=== PATIENT | male | born 1945 | race Caucasian/White ===

== ENCOUNTER 2025-05-03 13:11 | Emergency (ER) | payer MEDICARE, BC, SELFPAY ==
--- NOTE | 2025-05-03 13:25 | ED.GENMED ---
History of Present Illness
General
Chief Complaint: Throat Problem
Source: patient
Exam Limitations: none
Time Seen by Provider: 05/03/25 13:18
History of Present Illness
History of Present Illness:
80yoM with a history of ESRD on hemodialysis T//S, coronary artery disease, peripheral artery disease, COPD, insulin-dependent diabetes, hypertension, and hyperlipidemia presenting via EMS for evaluation after choking episode. Patient is a
resident at [facility]. He was eating a turkey club for lunch today. He did not wear his upper dentures and did not fully chew his food. A piece of sandoval got stuck in the back of his throat. Staff performed Heimlich maneuver without
improvement so EMS was activated. During transport, the ambulance hit a bump which dislodged piece of sandoval. Patient is now feeling much better and is requesting to be discharged. His only current symptom is a mild sore throat. He has baseline
dyspnea from his COPD which is no worse than normal. He denies any issues with dysphagia normally.
Phy Exam
General Physical Exam
General Presentation: well appearing and no apparent distress
General Skin: warm and dry
General Habitus: normal
General Mental: alert
ENT Exam
ENT Exam: normocephalic and other (Posterior oropharynx appears normal. Airway patent. Speaking in full sentences without difficulty.)
Pulmonary Exam
Pulmonary Exam: lungs clear, no respiratory distress, no crackles, no rhonchi, no stridor and no wheezing
Neurological Exam
Neurological Exam: alert
Ade Coma Scale
Eye Opening: Spontaneous
Verbal Response: Oriented
Motor Response: Obeys Commands
GCS Total Score: 15
Skin Exam
Skin Exam: normal color and warm/dry
Psychiatric Exam
Psychiatric Exam: normal mood/affect
Course
Vital Signs
Initial and Last Documented VS:
Initial Vital Signs
Temp Pulse Resp BP Pulse Ox
98.2 F 69 16 106/76 100
05/03/25 13:26 08/10/25 13:26 05/03/25 13:26 05/03/25 13:26 05/03/25 13:26
Last Documented Vital Signs
Temp Pulse Resp BP Pulse Ox
98.2 F 69 16 106/76 100
05/03/25 13:26 05/03/25 13:26 05/03/25 13:26 05/03/25 13:26 05/03/25 13:32
MDM/Problems Addressed
Differential Diagnosis Includes:
80yoM here after a choking episode. Piece of sandoval got stuck in back of throat. This dislodged while in the ambulance. Now asymptomatic and requesting to be discharged. VSS and oxygen saturation 100% on room air. Airway is patent and he is speaking
in full sentences. Patient stable for discharge back to his nursing facility.
*Pulse Oximetry
Patient hypoxic: no (100%)
*Critical Care Note
Total Time (30-74mins, 75-104mins- exclusive of procedures): Not Applicable
ED Attending Note
-
Portions of this chart may have been created with voice recognition software.� Occasional wrong word or��sound alike� substitutions may have occurred due to the inherent limitations of voice recognition software.
Discharge Plan
Departure
Patient Disposition: Home (Routine Discharge)
Date of Disposition: 05/03/25
Time of Disposition: 13:28
Patient with high blood pressure during this ER visit?: No
Discharge Problem:
Choking episode
Instructions: Choking
Activity Restrictions/Additional Instructions:
Chew food well before swallowing.
Please follow-up with your family doctor. Return to the ER with any new or worsening symptoms.
Interventions
Interventions:
*Risk Screen - Suicide Last Done: 05/03/25 13:26
*General Assessment Last Done: 05/03/25 13:32
*Neglect/Abuse Screening Last Done: 05/03/25 13:26
*ED- Fall Risk Assessment Last Done: 05/03/25 13:32
*ED COVID-19 Vaccine History Last Done: 05/03/25 13:32
ED-EENT Assessment Last Done: 05/03/25 13:32
ED- Pulmonary Assessment Last Done: 05/03/25 13:32
Discharge Date and Time
Print Language: SYRIAN
[2025-05-03 13:26] VITALS: BP 106/76
== END 2025-05-03 13:35 | disposition home or self-care (01) ==
LOC: EMR 13:11
PROVIDERS: EMERGENCY PHYSICIAN Emergency Medicine; FAMILY PHYSICIAN Hospitalist
DX: R09.89 Other specified symptoms and signs involving the circulatory and respiratory systems (principal); E11.22 Type 2 diabetes mellitus with diabetic chronic kidney disease; I12.0 Hypertensive chronic kidney disease with stage 5 chronic kidney disease or end stage renal disease; N18.6 End stage renal disease; Z99.2 Dependence on renal dialysis; E78.5 Hyperlipidemia, unspecified; J44.9 Chronic obstructive pulmonary disease, unspecified; I25.10 Atherosclerotic heart disease of native coronary artery without angina pectoris; Z79.4 Long term (current) use of insulin
CPT/HCPCS: 99283